=== PATIENT | female | born 1980 | race Caucasian/White ===

== ENCOUNTER 2022-09-21 18:33 | Emergency (ER) | payer OTHER ==
[2022-09-21 18:51] VITALS: BP 115/87; PULSE 108; RESP 18; TEMP 98; BMI 33.6
== END 2022-09-21 20:45 | disposition home or self-care (01) ==
LOC: JERFT 18:33
DX: S09.90XA Unspecified injury of head, initial encounter (principal); W22.8XXA Striking against or struck by other objects, initial encounter
CPT/HCPCS: 70450-TC; 99284-25

== ENCOUNTER 2023-06-17 16:14 | Emergency (ER) | payer OTHER ==
[2023-06-17 16:22] VITALS: BP 110/72; PULSE 99; RESP 18; TEMP 97.9; BMI 32.1
[2023-06-17] MEDS ORDERED: FLUCONAZOLE 150 MG TABLET PO ONE ×2 (17:21→17:47)
== END 2023-06-17 17:49 | disposition home or self-care (01) ==
LOC: JER 16:14 → JERFT 16:14
DX: L29.2 Pruritus vulvae (principal); N89.8 Other specified noninflammatory disorders of vagina; B37.31 Acute candidiasis of vulva and vagina
CPT/HCPCS: 99283-25

== ENCOUNTER 2023-07-03 18:48 | Emergency (ER) | payer OTHER ==
[2023-07-03 19:13] VITALS: BP 116/76; PULSE 100; RESP 18; TEMP 98.7; BMI 32.1
[2023-07-03 19:59] LABS: EPI CELLS 9 /uL (0-25.1); HYALINE CASTS 1 /uL (0-3.1); URINE APPEARANCE CLEAR; URINE BACTERIA 1771 /uL (0-1359); URINE BILIRUBIN NEGATIVE (NEGATIVE); URINE COLOR YELLOW; URINE GLUCOSE (UA) NEGATIVE (NEGATIVE); URINE KETONE 1+ (NEGATIVE); URINE LEUK ESTERASE 2+ (NEGATIVE); URINE NITRITE NEGATIVE (NEGATIVE); URINE PROTEIN NEGATIVE (NEGATIVE); URINE RBC 50 /uL (0-23.9); URINE WBC 165 /uL (0-25.8)
[2023-07-03 20:24] LABS: BASO % 0.2 % (0-2.0); EOS % 0.5 % (0-4.5); HEMATOCRIT 42.5 % (32.4-45.2); LYMPH % 17.8 % (8-40); MCH 30.6 pg (25.7-33.7); MCHC 33.1 g/dl (32.0-36.0); MEAN CELL VOLUME 92.6 fl (80-96); MEAN PLT VOLUME 9.1 fl (7.5-11.1); MONO % 10.3 % (3.8-10.2); NEUT % 71.2 % (42.8-82.8); PLATELET COUNT 299 10^3/uL (134-434); RBC 4.59 M/mm3 (3.60-5.2); RDW 13.1 % (11.6-15.6); WHITE BLOOD COUNT 11.3 K/mm3 (4.0-10.0)
[2023-07-03 20:41] LABS: POTASSIUM 4.1 mmol/L (3.5-5.1)
[2023-07-03 20:42] LABS: BLOOD UREA NITROGEN 16.4 mg/dL (7-18); CALCIUM 9.1 mg/dL (8.5-10.1)
[2023-07-03] MEDS ORDERED: SULFAMETHOXAZOLE/TRIMETHOPRIM 800MG/160MG D.S. TABLET PO ONE (21:00)
[2023-07-03] MEDS ORDERED: SULFAMETHOXAZOLE/TRIMETHOPRIM 800MG/160MG D.S. TABLET ONE (21:35)
[2023-07-03 22:15] LABS: ALBUMIN 3.6 g/dl (3.4-5.0)
[2023-07-03 22:18] LABS: BILIRUBIN,DIRECT 0.1 mg/dL (0.0-0.2)
[2023-07-03 22:20] LABS: BILIRUBIN,TOTAL 0.4 mg/dL (0.2-1); TOT PROT 7.4 g/dl (6.4-8.2)
== END 2023-07-03 22:29 | disposition home or self-care (01) ==
LOC: JER 18:48
DX: R50.9 Fever, unspecified (principal); M54.50 Low back pain, unspecified; R35.0 Frequency of micturition; R30.0 Dysuria; N30.01 Acute cystitis with hematuria
CPT/HCPCS: 36415; 76705-TC; 80048; 80076; 81003; 83690; 85025; 87086; 87186; 99284-25

== ENCOUNTER 2023-07-12 13:54 | Day surgery (SDC) | payer OTHER ==
[2023-07-12 14:20] VITALS: BMI 32.5
[2023-07-12 16:12] LABS: EPI CELLS 21 /uL (0-25.1); HYALINE CASTS 0 /uL (0-3.1); PH,URINE 6.5 (5.0-8.0); URINE APPEARANCE CLEAR; URINE BACTERIA 197 /uL (0-1359); URINE BILIRUBIN NEGATIVE (NEGATIVE); URINE COLOR YELLOW; URINE GLUCOSE (UA) NEGATIVE (NEGATIVE); URINE KETONE NEGATIVE (NEGATIVE); URINE LEUK ESTERASE NEGATIVE (NEGATIVE); URINE NITRITE NEGATIVE (NEGATIVE); URINE PROTEIN NEGATIVE (NEGATIVE); URINE RBC 105 /uL (0-23.9); URINE UROBILINOGEN 0.2 mg/dL (0.2-1.0); URINE WBC 9 /uL (0-25.8)
[2023-07-12 16:18] LABS: HCG,QUALITATIVE URINE Negative
[2023-07-12] MEDS: ONDANSETRON 4 MG/2 ML VIAL IVPUSH ONE ×2 (16:45→21:40)
[2023-07-12] MEDS ORDERED: ACETAMINOPHEN INJECTION 100 ML IVPB ONE (16:46)
[2023-07-12] MEDS ORDERED: ONDANSETRON 4 MG/2 ML VIAL ONE ×2 (16:46→21:01)
[2023-07-12] MEDS: LACTATED RINGERS SOLUTION 1000 ML INFUS.BAG IV ONE (16:50)
[2023-07-12] MEDS: ACETAMINOPHEN 1000 MG/100 ML BAG IVPB ONE (16:50)
[2023-07-12 17:49] LABS: BASO % 0.5 % (0-2.0); EOS % 2.4 % (0-4.5); HEMATOCRIT 45.4 % (32.4-45.2); HEMOGLOBIN 15.3 GM/dL (10.7-15.3); MCH 31.1 pg (25.7-33.7); MCHC 33.7 g/dl (32.0-36.0); MEAN CELL VOLUME 92.3 fl (80-96); MEAN PLT VOLUME 8.4 fl (7.5-11.1); NEUT % 54.1 % (42.8-82.8); PLATELET COUNT 376 10^3/uL (134-434); RBC 4.92 M/mm3 (3.60-5.2); RDW 13.9 % (11.6-15.6); WHITE BLOOD COUNT 7.6 K/mm3 (4.0-10.0)
[2023-07-12 18:04] LABS: POTASSIUM 4.1 mmol/L (3.5-5.1)
[2023-07-12 18:07] LABS: ALBUMIN 4.2 g/dl (3.4-5.0); BLOOD UREA NITROGEN 13.3 mg/dL (7-18); CALCIUM 10.4 mg/dL (8.5-10.1); MAGNESIUM 2.1 mg/dL (1.8-2.4)
[2023-07-12 18:10] LABS: CREATININE 1.1 mg/dL (0.55-1.3)
[2023-07-12 18:11] LABS: BILIRUBIN,TOTAL 0.4 mg/dL (0.2-1)
[2023-07-12 18:12] LABS: TOT PROT 8.6 g/dl (6.4-8.2)
[2023-07-12] MEDS ORDERED: HYDROmorphone HCl 2 MG/ML VIAL ONE (21:01)
[2023-07-12] MEDS: HYDROmorphone HCl 2 MG/ML VIAL IVPUSH ONE (21:39)
[2023-07-12 22:01] LABS: ACTIVATED PTT 33.9 SECONDS (25.2-36.5); INR 1.21 (0.83-1.09)
[2023-07-13] MEDS ORDERED: DOCUSATE SODIUM 100 MG CAPSULE (FP) PO PRN ×2 (04:02→12:51)
[2023-07-13] MEDS ORDERED: HYDROmorphone HCl 2 MG/ML VIAL IVPUSH PRN ×2 (04:07→12:51)
[2023-07-13] MEDS ORDERED: ONDANSETRON 4 MG/2 ML VIAL IVPUSH PRN ×2 (04:16→12:51)
[2023-07-13 06:38] LABS: BASO % 0.5 % (0-2.0); EOS % 3.1 % (0-4.5); HEMOGLOBIN 12.9 GM/dL (10.7-15.3); LYMPH % 43.4 % (8-40); MCH 30.7 pg (25.7-33.7); MEAN CELL VOLUME 93.1 fl (80-96); MONO % 9.3 % (3.8-10.2); NEUT % 43.7 % (42.8-82.8); PLATELET COUNT 300 10^3/uL (134-434); RBC 4.19 M/mm3 (3.60-5.2); RDW 13.3 % (11.6-15.6); WHITE BLOOD COUNT 7.1 K/mm3 (4.0-10.0)
[2023-07-13] MEDS ORDERED: PANTOPRAZOLE 40 MG TABLET PO ONE (06:39)
[2023-07-13] MEDS: PANTOPRAZOLE 40 MG TABLET PO SCH (06:43)
[2023-07-13] MEDS ORDERED: INSULIN ASPART SLIDING SCALE (NOVOLOG) 1 VIAL SQ SCH (07:00)
[2023-07-13 07:04] LABS: POTASSIUM 4.3 mmol/L (3.5-5.1)
[2023-07-13 07:06] LABS: BLOOD UREA NITROGEN 11.9 mg/dL (7-18); CALCIUM 9.6 mg/dL (8.5-10.1)
[2023-07-13 07:10] LABS: CREATININE 1.1 mg/dL (0.55-1.3)
[2023-07-13] MEDS: SODIUM CHLORIDE 1,000 ML IV SCH ×2 (07:14→18:14)
[2023-07-13] MEDS ORDERED: ACETAMINOPHEN INJECTION 100 ML IVPB ONE (08:14)
[2023-07-13] MEDS: ACETAMINOPHEN 1000 MG/100 ML BAG IVPB PRN (08:28)
[2023-07-13] MEDS: ceFAZolin SODIUM 1 GM VIAL IVPB ONE (09:42)
[2023-07-13] MEDS: BUPIVACAINE HCL/PF 0.25% (2.5MG/ML) 10 ML VIAL IJ ONE ×2 (09:43→11:30)
[2023-07-13] MEDS ORDERED: ROCURONIUM BROMIDE 50 MG/5 ML SYRINGE ONE (09:49)
[2023-07-13] MEDS ORDERED: MIDAZOLAM HCL 2 MG/2 ML SINGLE DOSE VIAL ONE (09:49)
[2023-07-13] MEDS ORDERED: LIDOCAINE HCL/PF 2% SDV 5ML VIAL ONE (09:49)
[2023-07-13] MEDS ORDERED: PROPOFOL 60 ML ONE (09:49)
[2023-07-13] MEDS ORDERED: ONDANSETRON 4 MG/2 ML VIAL ONE (09:49)
[2023-07-13] MEDS ORDERED: DEXAMETHASONE SOD PHOSPHATE 4 MG/1 ML VIAL ONE (09:49)
[2023-07-13] MEDS ORDERED: SUGAMMADEX SODIUM 200 MG/2 ML VIAL ONE ×2 (10:17→11:59)
[2023-07-13] MEDS ORDERED: BUPIVACAINE HCL/PF 0.25% (2.5MG/ML) 10 ML VIAL ONE ×2 (10:42→10:43)
[2023-07-13] MEDS ORDERED: BUPIVACAINE HCL/PF 0.5% (5MG/ML) 10 ML VIAL ONE (11:02)
[2023-07-13] MEDS ORDERED: HYDROmorphone HCl 2 MG/ML VIAL IVPB PRN (13:14)
[2023-07-13] MEDS: LACTATED RINGERS SOLUTION 1,000 ML IV SCH ×2 (18:13→18:14)
[2023-07-13] MEDS: ARIPiprazole 2 MG TABLET PO SCH (18:13)
[2023-07-13] MEDS: ACETAMINOPHEN 325 MG TABLET (FP) PO SCH (18:17)
[2023-07-13] MEDS: oxyCODONE HCL 5 MG TABLET PO PRN (19:25)
[2023-07-13] MEDS ORDERED: NORTRIPTYLINE HCL 50 MG CAPSULE PO SCH (22:00)
[2023-07-13] MEDS ORDERED: ROSUVASTATIN CA 5 MG TABLET PO SCH (22:00)
[2023-07-13] MEDS: ROSUVASTATIN CA 5 MG TABLET PO SCH (22:03)
[2023-07-13] MEDS: NORTRIPTYLINE HCL 50 MG CAPSULE PO SCH (22:03)
[2023-07-14] MEDS: MELATONIN 5 MG TABLETS PO PRN (00:06)
[2023-07-14] MEDS: PANTOPRAZOLE 40 MG TABLET PO SCH (06:17)
[2023-07-14] MEDS: ARIPiprazole 2 MG TABLET PO SCH (10:07)
[2023-07-14 13:00] LABS: BASO % 0.1 % (0-2.0); EOS % 0.1 % (0-4.5); HEMATOCRIT 35.2 % (32.4-45.2); LYMPH % 20.6 % (8-40); MCH 31.5 pg (25.7-33.7); MCHC 34.2 g/dl (32.0-36.0); MEAN CELL VOLUME 92.3 fl (80-96); MEAN PLT VOLUME 8.5 fl (7.5-11.1); MONO % 5.7 % (3.8-10.2); NEUT % 73.5 % (42.8-82.8); PLATELET COUNT 310 10^3/uL (134-434); RBC 3.82 M/mm3 (3.60-5.2); WHITE BLOOD COUNT 11.7 K/mm3 (4.0-10.0)
[2023-07-14 13:23] LABS: POTASSIUM 4.2 mmol/L (3.5-5.1)
[2023-07-14 13:24] LABS: ALBUMIN 2.9 g/dl (3.4-5.0); CALCIUM 9.2 mg/dL (8.5-10.1)
[2023-07-14 13:25] LABS: BLOOD UREA NITROGEN 9.2 mg/dL (7-18)
[2023-07-14 13:28] LABS: CREATININE 1.1 mg/dL (0.55-1.3)
[2023-07-14 13:29] LABS: BILIRUBIN,TOTAL 0.2 mg/dL (0.2-1); TOT PROT 6.1 g/dl (6.4-8.2)
[2023-07-14 15:18] VITALS: BP 109/82; PULSE 98; RESP 18; TEMP 97.5
[2023-07-14] MEDS: ACETAMINOPHEN 325 MG TABLET (FP) PO PRN (15:40)
== END 2023-07-14 18:44 | disposition home or self-care (01) ==
LOC: JER 13:54 → JERBED 20:37 → UNDOADMIN 20:37 → J8W 07-13 14:32 → JERBED 07-13 14:32 → JASUSAT 07-14 09:20 → J8W 07-14 09:28 → JASUSAT 07-14 18:44
PROVIDERS: ATTEND Internal Medicine
PROC: 0FT44ZZ Resection of Gallbladder, Percutaneous Endoscopic Approach (ICD-10-PCS; principal; 2023-07-14)
DX: K80.00 Calculus of gallbladder with acute cholecystitis without obstruction (principal)
CPT/HCPCS: 36415; 71045-TC-FY; 76705-TC; 80048; 80053; 81003; 83690; 83735; 84703; 85025; 85610; 85730; 87086; 94760; 99285-25; J0131

== ENCOUNTER 2023-10-07 19:43 | Emergency (ER) | payer OTHER ==
[2023-10-07 19:55] VITALS: BP 114/73; PULSE 115; RESP 18; TEMP 100; BMI 31.3
[2023-10-07] MEDS ORDERED: guaiFENesin/D-METHORPHAN HB 10 ML UNIT-DOSE CUPS ONE (21:41)
[2023-10-07] MEDS ORDERED: predniSONE 20 MG TABLET (UD) ONE (21:41)
[2023-10-07] MEDS ORDERED: ALBUTEROL SO4 HFA INHALER IH ONE (21:41)
[2023-10-07] MEDS: ALBUTEROL SO4 HFA INHALER IH ONE (21:49)
[2023-10-07] MEDS: predniSONE 20 MG TABLET (UD) PO ONE (21:49)
[2023-10-07] MEDS: guaiFENesin/D-METHORPHAN HB 10 ML UNIT-DOSE CUPS PO ONE (21:49)
== END 2023-10-07 21:53 | disposition home or self-care (01) ==
LOC: JERFT 19:43
DX: J40 Bronchitis, not specified as acute or chronic (principal); J06.9 Acute upper respiratory infection, unspecified; B97.89 Other viral agents as the cause of diseases classified elsewhere; R05.9 Cough, unspecified; R09.81 Nasal congestion; R50.9 Fever, unspecified; R53.83 Other fatigue; Z20.822 Contact with and (suspected) exposure to COVID-19
CPT/HCPCS: 0241U-QW; 71046-TC-FY; 99284-25

== ENCOUNTER 2024-01-12 21:37 | Emergency (ER) | payer OTHER ==
[2024-01-12 21:51] VITALS: BP 106/80; PULSE 94; RESP 18; TEMP 98.2; BMI 30.7
[2024-01-12 22:49] LABS: BASO % 0.3 % (0-2.0); EOS % 2.6 % (0-4.5); HEMATOCRIT 38.3 % (32.4-45.2); HEMOGLOBIN 13.1 GM/dL (10.7-15.3); LYMPH % 41.8 % (8-40); MCHC 34.1 g/dl (32.0-36.0); MEAN CELL VOLUME 90.8 fl (80-96); MEAN PLT VOLUME 9.2 fl (7.5-11.1); NEUT % 46.3 % (42.8-82.8); PLATELET COUNT 267 10^3/uL (134-434); RBC 4.22 M/mm3 (3.60-5.2); RDW 13.9 % (11.6-15.6)
[2024-01-12 23:25] LABS: PH,URINE 6.5 (5.0-8.0); URINE APPEARANCE CLEAR; URINE BILIRUBIN NEGATIVE (NEGATIVE); URINE COLOR YELLOW; URINE GLUCOSE (UA) NEGATIVE (NEGATIVE); URINE KETONE NEGATIVE (NEGATIVE); URINE LEUK ESTERASE TRACE (NEGATIVE); URINE NITRITE NEGATIVE (NEGATIVE); URINE PROTEIN NEGATIVE (NEGATIVE); URINE UROBILINOGEN 0.2 mg/dL (0.2-1.0)
[2024-01-12 23:43] LABS: POTASSIUM 3.9 mmol/L (3.5-5.1)
[2024-01-12 23:45] LABS: CALCIUM 9.5 mg/dL (8.5-10.1)
[2024-01-12 23:46] LABS: ALBUMIN 3.9 g/dl (3.4-5.0); BLOOD UREA NITROGEN 19.1 mg/dL (7-18)
[2024-01-12 23:49] LABS: HCG,QUALITATIVE URINE Negative
[2024-01-12 23:50] LABS: TOT PROT 7.3 g/dl (6.4-8.2)
[2024-01-12 23:51] LABS: BILIRUBIN,TOTAL 0.4 mg/dL (0.2-1)
[2024-01-13 01:57] LABS: EPI CELLS 39.6 /uL (0-25.1); HYALINE CASTS 1.16 /uL (0-3.1); URINE RBC 8.7 /uL (0-23.9); URINE WBC 57.5 /uL (0-25.8)
[2024-01-13 01:58] LABS: URINE BACTERIA 2282.6 /uL (0-1359)
== END 2024-01-13 02:05 | disposition home or self-care (01) ==
LOC: JER 21:37
DX: R10.84 Generalized abdominal pain (principal); R19.7 Diarrhea, unspecified; R35.0 Frequency of micturition
CPT/HCPCS: 36415; 76830-TC; 80053; 81003; 84703; 85025; 99284-25

== ENCOUNTER 2024-03-01 07:39 | Emergency (ER) | payer OTHER ==
[2024-03-01 07:48] VITALS: BP 111/84; PULSE 97; RESP 16; TEMP 97.7; BMI 29.7
== END 2024-03-01 11:27 | disposition home or self-care (01) ==
LOC: JERFT 07:39 → JER 07:39 → JERFT 11:27
DX: S90.31XA Contusion of right foot, initial encounter (principal); W20.8XXA Other cause of strike by thrown, projected or falling object, initial encounter
CPT/HCPCS: 73630-TC-RT-FY; 99283-25

== ENCOUNTER 2024-03-23 09:56 | Inpatient (IN) | payer OTHER ==
[2024-03-23] MEDS: LACTATED RINGERS SOLUTION 1000 ML INFUS.BAG IV ONE ×2 (10:18→14:50)
[2024-03-23] MEDS: SODIUM CHLORIDE 1,000 ML IV STA (10:19)
[2024-03-23 10:44] LABS: BASO % 0.2 % (0-2.0); EOS % 0.1 % (0-4.5); HEMATOCRIT 43.3 % (32.4-45.2); HEMOGLOBIN 14.4 GM/dL (10.7-15.3); LYMPH % 3.6 % (8-40); MCH 30.5 pg (25.7-33.7); MCHC 33.3 g/dl (32.0-36.0); MEAN CELL VOLUME 91.7 fl (80-96); MEAN PLT VOLUME 9.1 fl (7.5-11.1); MONO % 7.4 % (3.8-10.2); NEUT % 88.7 % (42.8-82.8); PLATELET COUNT 323 10^3/uL (134-434); RBC 4.72 M/mm3 (3.60-5.2); RDW 14.1 % (11.6-15.6); WHITE BLOOD COUNT 14.1 K/mm3 (4.0-10.0)
[2024-03-23 10:51] LABS: INR 0.96 (0.83-1.09); PROTHROMBIN TIME (PATIENT) 10.9 SEC (9.7-13.0)
[2024-03-23 10:54] LABS: ACTIVATED PTT 23.4 SECONDS (25.2-36.5)
[2024-03-23 11:23] LABS: VENOUS O2 SATURATION 46.1 % (70-80); VENOUS PH 7.296 (7.310-7.410)
[2024-03-23 11:43] LABS: ALBUMIN 3.3 g/dl (3.4-5.0); BLOOD UREA NITROGEN 17.2 mg/dL (7-18); CALCIUM 8.9 mg/dL (8.5-10.1); MAGNESIUM 3.7 mg/dL (1.8-2.4)
[2024-03-23 11:47] LABS: CREATININE 1.7 mg/dL (0.55-1.3)
[2024-03-23 11:48] LABS: BILIRUBIN,TOTAL 1.8 mg/dL (0.2-1); TOT PROT 6.6 g/dl (6.4-8.2)
[2024-03-23] MEDS ORDERED: CLINDAMYCIN 600MG PREMIX IVPB 1,200 MG/100 ML BAG IVPB ONE (12:05)
[2024-03-23] MEDS ORDERED: VANCOMYCIN/WATER 1250 MG 1,250 MG/250 ML BAG IVPB ONE ×2 (12:11→14:50)
[2024-03-23] MEDS ORDERED: CEFEPIME 2 GM/100 ML BAG IVPB ONE (12:11)
[2024-03-23] MEDS: CEFEPIME HCL 2 GM VIAL (RESTRICTED TO ID) IVPB ONE (12:32)
[2024-03-23] MEDS: CLINDAMYCIN 900 MG PREMIX IVPB 900 MG/50 ML BAG IVPB ONE (12:40)
[2024-03-23 13:02] LABS: ERYTHROCYTE SEDIMENTATION RATE 25 mm/hr (0-20)
[2024-03-23 13:29] LABS: EPI CELLS 6 /uL (0-25.1); HYALINE CASTS 0 /uL (0-3.1); URINE APPEARANCE CLEAR; URINE BACTERIA 200 /uL (0-1359); URINE BILIRUBIN 1+ (NEGATIVE); URINE COLOR DK YELLOW; URINE GLUCOSE (UA) NEGATIVE (NEGATIVE); URINE KETONE NEGATIVE (NEGATIVE); URINE LEUK ESTERASE TRACE (NEGATIVE); URINE NITRITE NEGATIVE (NEGATIVE); URINE PROTEIN NEGATIVE (NEGATIVE); URINE WBC 2 /uL (0-25.8)
[2024-03-23 13:34] LABS: URINE RBC 48.5 /uL (0-23.9)
[2024-03-23] MEDS: VANCOMYCIN/WATER 1250 MG 1,250 MG/250 ML BAG IVPB ONE (14:55)
[2024-03-23 18:36] LABS: N-TERMINAL BNP 28.5 pg/ml (5-125)
[2024-03-23] MEDS: SODIUM CHLORIDE 1,000 ML IV SCH ×2 (19:37→21:11)
[2024-03-23] MEDS: LACTOBACILLUS ACIDOPHILUS 1 TABLET PO SCH (21:11)
[2024-03-24 07:56] LABS: POTASSIUM 4.4 mmol/L (3.5-5.1)
[2024-03-24 08:02] LABS: ALBUMIN 2.5 g/dl (3.4-5.0); BILIRUBIN,TOTAL 0.6 mg/dL (0.2-1)
[2024-03-24 08:03] LABS: TOT PROT 5.2 g/dl (6.4-8.2)
[2024-03-24 08:04] LABS: CREATININE 0.9 mg/dL (0.55-1.3)
[2024-03-24 08:06] LABS: BASO % 0.2 % (0-2.0); EOS % 1.2 % (0-4.5); HEMATOCRIT 37.2 % (32.4-45.2); HEMOGLOBIN 12.3 GM/dL (10.7-15.3); LYMPH % 16.9 % (8-40); MCH 30.7 pg (25.7-33.7); MCHC 33.1 g/dl (32.0-36.0); MEAN CELL VOLUME 92.9 fl (80-96); MEAN PLT VOLUME 9.3 fl (7.5-11.1); MONO % 9.7 % (3.8-10.2); PLATELET COUNT 287 10^3/uL (134-434); RBC 4.01 M/mm3 (3.60-5.2); RDW 13.8 % (11.6-15.6); WHITE BLOOD COUNT 9.5 K/mm3 (4.0-10.0)
[2024-03-24] MEDS: ACETAMINOPHEN 325 MG TABLET (FP) PO PRN (09:20)
[2024-03-24] MEDS: oxyCODONE HCL 5 MG TABLET PO PRN (10:45)
[2024-03-24] MEDS: ARIPiprazole 2 MG TABLET PO SCH (11:22)
[2024-03-24] MEDS: DEXTROAMPHETAMINE/AMPHETAMINE 10 MG CAP.ER.24H PO SCH (11:27)
[2024-03-24] MEDS: HEPARIN NA (PORCINE) 5,000 UNITS/ML 1ML VIAL SQ SCH (13:30)
[2024-03-24] MEDS: NORTRIPTYLINE HCL 25 MG CAPSULE PO SCH (21:11)
[2024-03-25] MEDS: SODIUM CHLORIDE 1,000 ML IV SCH (13:14)
[2024-03-25] MEDS: oxyCODONE HCL 5 MG TABLET PO PRN (16:08)
[2024-03-25 20:55] VITALS: BMI 31.8
[2024-03-26] MEDS: oxyCODONE HCL 5 MG TABLET PO ONE (00:48)
[2024-03-26 07:40] LABS: POTASSIUM 3.9 mmol/L (3.5-5.1)
[2024-03-26 07:47] LABS: ALBUMIN 2.8 g/dl (3.4-5.0); BLOOD UREA NITROGEN 6.4 mg/dL (7-18)
[2024-03-26 07:50] LABS: CREATININE 0.9 mg/dL (0.55-1.3)
[2024-03-26 07:52] LABS: BILIRUBIN,TOTAL 0.4 mg/dL (0.2-1); TOT PROT 5.7 g/dl (6.4-8.2)
[2024-03-26 07:55] LABS: CALCIUM 9.3 mg/dL (8.5-10.1)
[2024-03-26 12:01] VITALS: TEMP 98.2
[2024-03-26 15:02] VITALS: BP 127/92; PULSE 98; RESP 18
== END 2024-03-26 17:36 | disposition home or self-care (01) | DRG 392 ==
LOC: JER 09:56 → JERBED 15:42 → J4W 18:19
PROVIDERS: ADMIT Internal Medicine; ATTEND Internal Medicine
DX: K52.9 Noninfective gastroenteritis and colitis, unspecified (principal); R00.0 Tachycardia, unspecified; R11.0 Nausea; R53.1 Weakness; I95.9 Hypotension, unspecified; N18.2 Chronic kidney disease, stage 2 (mild)
CPT/HCPCS: 0241U-QW; 36415; 71045-TC-FY; 71275-TC; 73630-TC-RT-FY; 74177-TC; 80053; 81003; 82803; 82962; 83605; 83690; 83735; 83880; 84484; 84703; 85025; 85610; 85651; 85730; 86140; 86850; 86900; 86901; 87040; 87045; 87046; 87086; 87324; 87449; 93005; 93010; 93971-TC; 99285-25; J1644; Q9967

== ENCOUNTER 2024-09-25 23:21 | Emergency (ER) | payer OTHER ==
[2024-09-25 23:26] VITALS: BP 117/80; PULSE 104; RESP 18; TEMP 98; BMI 29.6
[2024-09-26] MEDS ORDERED: IBUPROFEN 400 MG TABLET (FP) PO ONE (02:51)
== END 2024-09-26 03:05 | disposition home or self-care (01) ==
LOC: JER 23:21
DX: S92.351A Displaced fracture of fifth metatarsal bone, right foot, initial encounter for closed fracture (principal); W01.198A Fall on same level from slipping, tripping and stumbling with subsequent striking against other object, initial encounter
CPT/HCPCS: 73610-TC-LT-FY; 73610-TC-RT-FY; 73630-TC-LT; 73630-TC-RT-FY; 99283-25

== ENCOUNTER 2024-12-13 17:33 | Emergency (ER) | payer OTHER ==
[2024-12-13 17:46] VITALS: BP 105/71; PULSE 83; RESP 18; TEMP 98; BMI 26.6
[2024-12-13 19:02] LABS: EPI CELLS 25 /uL (0-25.1); HCG,QUALITATIVE URINE Negative; HYALINE CASTS 1 /uL (0-3.1); URINE APPEARANCE CLOUDY; URINE BACTERIA >9,000 /uL (0-1359); URINE BILIRUBIN NEGATIVE (NEGATIVE); URINE COLOR YELLOW; URINE GLUCOSE (UA) NEGATIVE (NEGATIVE); URINE KETONE TRACE (NEGATIVE); URINE LEUK ESTERASE TRACE (NEGATIVE); URINE NITRITE POSITIVE (NEGATIVE); URINE PROTEIN NEGATIVE (NEGATIVE); URINE WBC 45 /uL (0-25.8)
[2024-12-13] MEDS ORDERED: SULFAMETHOXAZOLE/TRIMETHOPRIM 800MG/160MG D.S. TABLET ONE (19:47)
[2024-12-13] MEDS: SULFAMETHOXAZOLE/TRIMETHOPRIM 800MG/160MG D.S. TABLET PO ONE (19:50)
[2024-12-13 21:11] LABS: URINE RBC 101.3 /uL (0-23.9)
== END 2024-12-13 19:53 | disposition home or self-care (01) ==
LOC: JERFT 17:33
DX: N39.0 Urinary tract infection, site not specified (principal)
CPT/HCPCS: 81003; 84703; 87086; 99283-25